=== PATIENT | male | born 1965 | race African-American/Black ===

== ENCOUNTER 2018-08-23 11:25 | Emergency (ER) | payer SELFPAY ==
[~2018-08-23] VITALS: Ht 180.3 cm; Wt 120.0 kg
[2018-08-23 11:35] VITALS: Ht 180.3 cm; Wt 120.0 kg
[2018-08-23] MEDS ORDERED: TRAZODONE HCL100 MG PO (11:36)
[2018-08-23] MEDS ORDERED: CLARITIN 10 MG10 MG PO (11:37)
[2018-08-23] MEDS ORDERED: MOBIC7.5 MG PO (11:37)
[2018-08-23] MEDS ORDERED: FLUTICASONE PRO16 GM NASAL (11:38)
[2018-08-23] MEDS ORDERED: VOLTAREN75 MG PO (11:38)
[2018-08-23] MEDS ORDERED: LEXAPRO10 MG PO (11:38)
[2018-08-23] MEDS ORDERED: VIBRAMYCIN 100100 MG PO (11:39)
[2018-08-23] MEDS ORDERED: PRINIVIL20 MG PO (11:39)
[2018-08-23 12:05] LABS: UDS - AMPHET NEGATIVE QUAL (NEGATIVE); UDS - BARB NEGATIVE QUAL (NEGATIVE); UDS - BENZO NEGATIVE QUAL (NEGATIVE); UDS - COCAINE NEGATIVE QUAL (NEGATIVE); UDS - OPIATE NEGATIVE QUAL (NEGATIVE); UDS - PCP NEGATIVE QUAL (NEGATIVE); UDS - THC NEGATIVE QUAL (NEGATIVE)
[2018-08-23 12:10] LABS: APPEARANCE CLEAR (CLEAR); BILIRUBIN NEGATIVE (NEGATIVE); COLOR YELLOW (YELLOW); GLUCOSE NEGATIVE (NEGATIVE); KETONE NEGATIVE (NEGATIVE); NITRITE NEGATIVE (NEGATIVE); PROTEIN NEGATIVE (NEGATIVE); SPECIFIC GRAVITY 1.015 (1.005-1.020); UROBILINOGEN NORMAL (NORMAL)
[2018-08-23 12:24] VITALS: BP 157/72
== END 2018-08-23 12:26 | disposition home or self-care (01) ==
LOC: D.ER 11:25
PROVIDERS: Family Medicine
DX: F41.9 Anxiety disorder, unspecified (principal); Z86.59 Personal history of other mental and behavioral disorders; I10 Essential (primary) hypertension; K21.9 Gastro-esophageal reflux disease without esophagitis; N42.9 Disorder of prostate, unspecified; F17.200 Nicotine dependence, unspecified, uncomplicated

== ENCOUNTER 2018-09-03 06:58 | Emergency (ER) | payer MEDICAID ==
[~2018-09-03] VITALS: Ht 180.3 cm; Wt 120.5 kg
[~2018-09-03 06:58] MED LIST: CLARITIN 10 MG10 MG PO; FLUTICASONE PRO16 GM NASAL; LEXAPRO10 MG PO; MOBIC7.5 MG PO; PRINIVIL20 MG PO; TRAZODONE HCL100 MG PO; VIBRAMYCIN 100100 MG PO; VOLTAREN75 MG PO
[2018-09-03 07:05] VITALS: BP 147/84; Ht 180.3 cm; Wt 120.5 kg
[2018-09-03] MEDS ORDERED: NAPROSYN500 MG PO (08:27)
== END 2018-09-03 08:34 | disposition home or self-care (01) ==
LOC: D.ER 06:58
DX: M17.11 Unilateral primary osteoarthritis, right knee (principal); Z59.0 Homelessness; M25.561 Pain in right knee; I10 Essential (primary) hypertension; K21.9 Gastro-esophageal reflux disease without esophagitis; N42.9 Disorder of prostate, unspecified

== ENCOUNTER 2018-09-06 16:21 | Emergency (ER) | payer MEDICAID ==
[~2018-09-06] VITALS: Ht 180.3 cm; Wt 118.2 kg
[~2018-09-06 16:21] MED LIST changes: +NAPROSYN500 MG PO
[2018-09-06 16:24] VITALS: Ht 180.3 cm; Wt 118.2 kg
[2018-09-06 17:04] LABS: APPEARANCE CLEAR (CLEAR); BILIRUBIN NEGATIVE (NEGATIVE); COLOR YELLOW (YELLOW); GLUCOSE NEGATIVE (NEGATIVE); KETONE NEGATIVE (NEGATIVE); NITRITE NEGATIVE (NEGATIVE); PROTEIN NEGATIVE (NEGATIVE); SPECIFIC GRAVITY 1.025 (1.005-1.020); UROBILINOGEN NORMAL (NORMAL)
[2018-09-06 17:05] LABS: EPITHELIAL CELLS OCC /hpf (0-5); RED CELLS - URINE OCC /hpf (0-5); WHITE CELLS - URINE OCC /hpf (0-5)
[2018-09-06 17:06] LABS: AMORPHOUS SEDIMENT <1+ /lpf (NONE SEEN); BACTERIA FEW /hpf (NONE SEEN); MUCUS <1+ /lpf (NONE SEEN)
[2018-09-06 17:12] LABS: UDS - AMPHET NEGATIVE QUAL (NEGATIVE); UDS - BARB NEGATIVE QUAL (NEGATIVE); UDS - BENZO NEGATIVE QUAL (NEGATIVE); UDS - COCAINE NEGATIVE QUAL (NEGATIVE); UDS - OPIATE NEGATIVE QUAL (NEGATIVE); UDS - PCP NEGATIVE QUAL (NEGATIVE); UDS - THC NEGATIVE QUAL (NEGATIVE)
[2018-09-06 17:17] LABS: BASOPHILS 0.3 % (0-2); EOSINOPHILS 3.3 % (0-7); HEMATOCRIT 40.8 % (42.0-54.0); HEMOGLOBIN 13.9 g/dL (13.5-17.5); IMMATURE GRANULOCYTES 0.4 % (0-5); LYMPHOCYTES 29.7 % (15-50); MCH 31.9 pg (26.0-34.0); MCHC 34.1 g/dL (31.0-37.0); MCV 93.6 fL (80.0-100.0); MONOCYTES 10.6 % (2-11); NEUTROPHILS 55.7 % (40-80); PLATELET COUNT 305 10x3/uL (130-400); RBC 4.36 10x6/uL (4.20-6.10); RDW 13.8 % (11.5-14.5); WBC 7.1 10x3/uL (4.8-10.8)
[2018-09-06 17:32] LABS: ALBUMIN 3.8 g/dL (3.4-5.0); ALKALINE PHOSPHATASE 74 U/L (46-116); ALT (SGPT) 41 U/L (10-68); BILIRUBIN - TOTAL 0.27 mg/dL (0.2-1.3); CALC OSMOLALITY 280 mosm/kg (275-300); CALCIUM 8.6 mg/dL (8.5-10.1); CARBON DIOXIDE 25.5 mmol/L (21.0-32.0); CHLORIDE - SERUM 104 mmol/L (98-107); CREATININE - SERUM 0.9 mg/dL (0.6-1.3); GLUCOSE 97 mg/dL (74-106); POTASSIUM - SERUM 3.9 mmol/L (3.5-5.1); PROTEIN - SERUM 7.1 g/dL (6.4-8.2); SODIUM 139 mmol/L (136-145); UREA NITROGEN 20 mg/dL (7-18); eGFR NON AFRICAN AMERICAN > 90 mL/min (90-120)
[2018-09-06 21:05] VITALS: BP 116/59
== END 2018-09-06 21:58 ==
LOC: D.ER 16:21
PROVIDERS: Family Medicine
DX: R45.851 Suicidal ideations (principal); I10 Essential (primary) hypertension; F17.200 Nicotine dependence, unspecified, uncomplicated